=== PATIENT | female | born 1955 | race Caucasian/White ===

== ENCOUNTER 2018-01-25 07:14 | Day surgery (SDC) | payer BC ==
[~2018-01-25 07:14] MED LIST: ROCURONIUM 50 MG INJ
[2018-01-25] MEDS ORDERED: MIDAZOLAM 1 MG/ML 2 ML INJ ×2 (09:24)
[2018-01-25] MEDS ORDERED: DEXAMETHASONE 4 MG/ML 1 ML INJ (10:04)
[2018-01-25] MEDS ORDERED: ONDANSETRON 4 MG INJ (10:05)
[2018-01-25] MEDS ORDERED: ROPIVACAINE 0.5 % 30 ML VIAL (10:50)
[2018-01-25] MEDS: POLYMYXIN/BACITRACIN 1L IRRIG (11:02)
[2018-01-25] MEDS: ROPIVACAINE 0.5 % 30 ML VIAL (11:02)
[2018-01-25] MEDS ORDERED: GLYCOPYRROLATE 0.4 MG INJ (11:33)
[2018-01-25] MEDS ORDERED: CEFAZOLIN 1 GM INJ (11:33)
[2018-01-25] MEDS ORDERED: NEOSTIGMINE 3 MG/3 ML SYRINGE (11:33)
[2018-01-25] MEDS ORDERED: SOD CHLORIDE 0.9% 1,000 ML IV (11:42)
[2018-01-25] MEDS ORDERED: FENTAnyl 50 MCG/ML VIAL (11:49)
[2018-01-25] MEDS: FENTAnyl 50 MCG/ML VIAL IV ×3 (11:51→12:17)
[2018-01-25] MEDS ORDERED: LABETALOL HCL 20MG INJ IV (12:00)
[2018-01-25] MEDS ORDERED: ONDANSETRON 4 MG INJ IV ×2 (12:00)
[2018-01-25] MEDS ORDERED: FENTAnyl 50 MCG/ML VIAL IV (12:00)
[2018-01-25] MEDS ORDERED: hydrALAzine 20 MG INJ IV (12:00)
[2018-01-25] MEDS ORDERED: METOCLOPRAMIDE 10 MG INJ IV (12:00)
[2018-01-25] MEDS ORDERED: KETOROLAC 30 MG INJ IV (12:00)
[2018-01-25] MEDS ORDERED: ALBUTEROL 0.083% (NEB) 2.5 MG/3 ML AMP HHN (12:00)
[2018-01-25] MEDS ORDERED: MEPERIDINE 25 MG INJ IV (12:00)
[2018-01-25] MEDS ORDERED: HYDROmorphONE 1 MG/5 ML IV SYRINGE IV ×2 (12:00)
[2018-01-25] MEDS ORDERED: morphine 2 MG INJ IV (12:00)
[2018-01-25] MEDS ORDERED: EPHEDrine SULFATE 50 MG/5 ML SYG IV (12:00)
[2018-01-25] MEDS ORDERED: OXYCODONE/ACETAMINOPHEN (5/325) TAB PO ×2 (12:00)
[2018-01-25] MEDS ORDERED: DIPHENHYDRAMINE 50 MG INJ IV (12:00)
[2018-01-25] MEDS: HYDROmorphONE 1 MG/5 ML IV SYRINGE IV (12:17)
[2018-01-25] MEDS: OXYCODONE/ACETAMINOPHEN (5/325) TAB PO ×2 (13:48→14:43)
== END 2018-01-25 15:05 | disposition home or self-care (01) ==
LOC: SDS 07:14
DX: M20.21 Hallux rigidus, right foot (principal); M94.271 Chondromalacia, right ankle and joints of right foot; J45.909 Unspecified asthma, uncomplicated; E78.00 Pure hypercholesterolemia, unspecified
CPT/HCPCS: 28291; 73630